=== PATIENT | female | born 1975 | race African-American/Black ===

== ENCOUNTER 2016-12-23 15:38 | Emergency (ER) | payer OTHER ==
[~2016-12-23] VITALS: Ht 167.6 cm; Wt 72.6 kg
[2016-12-23] MEDS ORDERED: NAPROSYN500 MG PO (16:31)
[2016-12-23 17:15] VITALS: BP 150/96
== END 2016-12-23 17:16 | disposition home or self-care (01) ==
LOC: ER 15:38
DX: S16.1XXA Strain of muscle, fascia and tendon at neck level, initial encounter (principal); R51 Headache; M54.5 Low back pain; V49.50XA Passenger injured in collision with unspecified motor vehicles in traffic accident, initial encounter; Y93.89 Activity, other specified; Y92.89 Other specified places as the place of occurrence of the external cause; Y99.8 Other external cause status